=== PATIENT | female | born 1975 | race Caucasian/White ===

== ENCOUNTER 2025-01-02 15:24 | Emergency (ER) | payer BC ==
[~2025-01-02] VITALS: Ht 162.6 cm; Wt 94.8 kg
[2025-01-02] MEDS ORDERED: ONDANSETRON HCL/PF 4 MG/2 ML VIAL ONE (15:59)
[2025-01-02] MEDS ORDERED: PANTOPRAZOLE 40 MG VIAL ONE ×2 (15:59→17:37)
[2025-01-02] MEDS ORDERED: MORPHINE SULFATE INJ 2 MG/ML DISP.SYRIN ONE (15:59)
[2025-01-02] MEDS: ONDANSETRON HCL/PF 4 MG/2 ML VIAL IVP ONE (16:08)
[2025-01-02] MEDS: MORPHINE SULFATE INJ 2 MG/ML DISP.SYRIN IV ONE (16:11)
[2025-01-02] MEDS: PANTOPRAZOLE 40 MG VIAL IV ONE ×2 (16:11→18:01)
[2025-01-02 16:20] LABS: PLATELET COUNT (AUTO) 185 K/uL (150-450); RED BLOOD CELL COUNT(AUTO) 5.10 MIL/uL (4.0-5.2); RED CELL DISTRIBUTION WIDTH 13.9 % (11.5-15.0); WHITE BLOOD COUNT (AUTO) 5.0 K/uL (4.3-11.0)
[2025-01-02 16:26] LABS: CREATININE 0.8 mg/dL (0.6-1.3); SODIUM SERUM 140 mmol/L (136-145); UREA NITROGEN, BLOOD 18 mg/dL (7-18)
[2025-01-02 16:31] LABS: CALCIUM, SERUM 9.4 mg/dL (8.5-10.1)
[2025-01-02] MEDS ORDERED: ONDA4TAB5 PO (18:16)
[2025-01-02 18:39] VITALS: BP 146/95; TEMP 98; O2SAT 99
== END 2025-01-02 18:40 | disposition home or self-care (01) ==
LOC: ER 15:24
DX: R07.89 Other chest pain (principal); R11.0 Nausea; R20.2 Paresthesia of skin; E11.9 Type 2 diabetes mellitus without complications; E66.9 Obesity, unspecified; I10 Essential (primary) hypertension; K21.9 Gastro-esophageal reflux disease without esophagitis; F41.0 Panic disorder [episodic paroxysmal anxiety]; Z68.35 Body mass index [BMI] 35.0-35.9, adult
CPT/HCPCS: 99285; 96374; 71045; 96375; 93005; 85025; 80048; 83690; 85378; 36415; 84484 ×2; J2405; J2470; J2270